=== PATIENT | male | born 1990 | race African-American/Black ===

== ENCOUNTER 2017-12-11 | Emergency (ER) | payer SELFPAY ==
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
[2017-12-11] MEDS ORDERED: ACETAMINOPHEN 325 MG TABLET PO ONE (02:22)
[2017-12-11] MEDS ORDERED: IBUPROFEN 600 MG TABLET PO ONE (02:22)
[2017-12-11] MEDS ORDERED: CEPHALEXIN 500 MG CAPSULE PO ONE (02:22)
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
[2017-12-11 03:45] VITALS: BP 157/71
== END 2017-12-11 03:35 | disposition home or self-care (01) ==
LOC: ER
DX: S60.511A Abrasion of right hand, initial encounter (principal); S60.414A Abrasion of right ring finger, initial encounter; S80.211A Abrasion, right knee, initial encounter; S90.411A Abrasion, right great toe, initial encounter; L08.9 Local infection of the skin and subcutaneous tissue, unspecified; Y04.8XXA Assault by other bodily force, initial encounter; F17.200 Nicotine dependence, unspecified, uncomplicated; J45.909 Unspecified asthma, uncomplicated
CPT/HCPCS: 99284

== ENCOUNTER → 2019-04-04 | Outpatient (CLI) | payer OTHER ==
--- NOTE | 2019-04-04 14:45 | RADIOLOGY REPORT (SQ) ---
EXAM DESCRIPTION: CT ABD/PELVIS NO ORAL OR IV COMPLETED DATE/TIME: 04/04/2019 1:15 pm REASON FOR STUDY: R35.0 FREQUENCY OF MICTURITION R35.0 FREQUENCY OF MICTURITION COMPARISON: None. TECHNIQUE: CT scan of the abdomen and pelvis performed without intravenous or oral contrast. Images reviewed with lung, soft tissue, and bone windows. Reconstructed coronal and sagittal MPR images revi ewed. All images stored on PACS. All CT scanners at this facility use dose modulation, iterative reconstruction, and/or weight based d osing when appropriate to reduce radiation dose to as low as reasonably achievable (ALARA). [facility]: Dose Right [facility]: CareDose [facility]: Dose Right [facility]: Teradose 4D [facility]: [employer] RADIATION DOSE: CT Rad equipment meets quality standard of care and radiation dose reduction techniq ues were employed. CTDIvol: 5.4 mGy. DLP: 284 mGy-cm.mGy. LIMITATIONS: None. FINDINGS: LOWER CHEST: No acute findings. NON-CONTRASTED LIVER, SPLEEN, ADRENALS: Evaluation is limited due to the absence of intravenous contr ast. The liver morphology is non cirrhotic. There is no CT evidence of hepatic steatosis. The sple en is normal in size. There is no abnormality of the adrenal glands. PANCREAS: No acute gross abnormality. GALLBLADDER: No abnormality that is apparent on CT. RIGHT KIDNEY AND URETER: Evaluation is limited due to the absence of intravenous contrast. There is no hydronephrosis, nephrolithiasis, hydroureter or ureterolithiasis. LEFT KIDNEY AND URETER: Evaluation is limited due to the absence of intravenous contrast. There is n o hydronephrosis, nephrolithiasis, hydroureter or ureterolithiasis. AORTA AND RETROPERITONEUM: No aneurysm of the abdominal aorta. No retroperitoneal adenopathy, hemorr shaina or mass. BOWEL AND PERITONEAL CAVITY: No bowel obstruction, bowel wall thickening or pericolonic/ perienteric inflammation. No free intraperitoneal fluid, mesenteric adenopathy, or mesenteric/peritoneal mass. APPENDIX: Normal. PELVIS, BLADDER, AND ABDOMINAL WALL:The urinary bladder is distended and normal in appearance. The p rostate gland is normal in size. There is no pelvic adenopathy, free fluid or mass. No abdominal ma ss or hernia. BONES: No acute findings. OTHER: No other finding. IMPRESSION: No acute intra-abdominal abnormality. COMMENT: Quality ID # [id number]: Final reports with documentation of one or more dose reduction techniques (e.g., Automated exposure control, adjustment of the mA and/or kV according to patient size, use of iterative reconstruction technique) TECHNICAL DOCUMENTATION: JOB ID: [id number] [employer]- All Rights Reserved Reading location - IP/workstation name: [email or web address]
== END ==
LOC: RAD 13:05
PROVIDERS: ATTEND Family Medicine
DX: R35.0 Frequency of micturition (principal)
CPT/HCPCS: 74176